=== PATIENT | female | born 1985 | race Caucasian/White ===

== ENCOUNTER 2016-11-11 09:58 | Day surgery (SDC) | payer OTHER ==
[~2016-11-11] VITALS: Ht 177.8 cm; Wt 90.7 kg
[~2016-11-11 09:58] MED LIST: FLEXERIL10 MG PO; FLEXERIL5 MG PO; GRALISE300 MG PO; HYDROCODON-ACE1 EAC8 PO; LYRICA100 MG PO; MORPHINE SULFAT15 M1 PO; MUSCLE RELAXANT; NOHOMEMEDS; NORCO 7.5/321 TABLET PO; PRENATAL1 EACH PO; SEROQUEL50 MG PO; TRAMADOL HCL50 MG PO; TYLENOL EXTRA500 MG PO; ULTRAM50 MG PO; ZOFRAN4 MG PO
== END 2016-11-11 10:05 | disposition home or self-care (01) ==
LOC: SDC 09:58
DX: C80.1 Malignant (primary) neoplasm, unspecified (principal); Z53.9 Procedure and treatment not carried out, unspecified reason